=== PATIENT | male | born 1995 | race Hispanic/Latino ===

== ENCOUNTER 2018-07-15 23:53 | Emergency (ER) | payer SELFPAY ==
[2018-07-16] MEDS ORDERED: TETANUS & DIPHTHERIA TOX,ADULT 0.5 ML VIAL ONE (00:30)
--- NOTE | 2018-07-16 00:54 | EDPHYS ---
Physician Documentation [facility] Name: Subhash Fernandez Age: 23 yrs Sex: Male : 1995 Arrival Date: 07/16/2018 Time: 00:00 Bed 7 Private MD: ED Physician Xavi Tolbert HPI: 07/16 00:10 This 23 yrs old Male presents to ER via Ambulatory with complaints of Finger cp Injury. 00:10 The patient or guardian reports a laceration, dirty. cp 00:10 The complaints affect the distal phalanx right thumb. cp 00:10 Context: The problem was sustained at work, resulted from use of knife. Onset: The cp symptoms/episode began/occurred this morning. Associated signs and symptoms: Pertinent negatives: cyanosis distally, numbness distally. Historical: - Allergies: 00:13 No Known Allergies; aa1 - Home Meds: 00:13 None [Active]; aa1 - PMHx: 00:13 None; aa1 - PSHx: 00:13 None; aa1 - Immunization history:: Last tetanus immunization: unknown. - Social history:: Smoking status: Patient/guardian denies using tobacco. - Ebola Screening: : No symptoms or risks identified at this time. ROS: 00:15 Skin: Positive for laceration(s), of the distal phalanx right thumb. cp 00:15 Constitutional: Negative for fever, chills, and weight loss. cp 00:15 Neuro: Negative for numbness. 00:15 All other systems are negative. Exam: 00:45 Head/Face: Normocephalic, atraumatic. cp 00:45 Constitutional: The patient appears in no acute distress, alert, awake, well developed, well nourished. 00:45 Cardiovascular: Rate: normal. 00:45 Respiratory: the patient does not display signs of respiratory distress, Respirations: normal, no use of accessory muscles, no splinting, no tachypnea. 00:45 Musculoskeletal/extremity: Perfusion: the extremity is with brisk capillary refill, Sensation intact. Tendon exam: specific tendon testing normal through active and passive range of motion 00:45 Skin: injury, laceration(s), the wound is approximately 2 cm(s), of the dorsal aspect distal phalanx right thumb, that can be described as no foreign body, linear, without bleeding. Vital Signs: 00:13 BP 168 / 92; Pulse 99; Resp 16; Temp 98.0; Pulse Ox 100% on R/A; Weight 81.65 kg; aa1 Height 5 ft. 8 in. (172.72 cm); Pain 0/10; 01:03 BP 140 / 94; Pulse 84; Resp 16; Pulse Ox 97% on R/A; Pain 0/10; aa1 00:13 Body Mass Index 27.37 (81.65 kg, 172.72 cm) aa1 MDM: 00:07 Patient medically screened. cp 00:48 Differential diagnosis: open fracture, simple laceration, nail injury. Data reviewed: cp vital signs, nurses notes, radiologic studies, plain films. Test interpretation: by ED physician or midlevel provider: plain radiologic studies. Counseling: I had a detailed discussion with the patient and/or guardian regarding: the historical points, exam findings, and any diagnostic results supporting the discharge/admit diagnosis, radiology results, to return to the emergency department if symptoms worsen or persist or if there are any questions or concerns that arise at home. Response to treatment: the patient's symptoms have markedly improved after treatment, and as a result, I will discharge patient. 07/16 00:08 Order name: XRAY Hand RIGHT 3 View cp Administered Medications: 00:32 Drug: Tetanus-Diphtheria Toxoid Adult 0.5 ml {Zoo Veterinarian: [employer]. Exp: jb4 08/02/2020. Lot #: [id number]. } Route: IM; Site: right deltoid; Disposition: 01:51 Co-signature as Attending Physician, Xavi Tolbert MD. [email or web address] Disposition: 07/16/18 00:53 Discharged to Home. Impression: Laceration without foreign body of thumb without damage to nail. - Condition is Stable. - Discharge Instructions: Laceration Care, Adult. - Prescriptions for Keflex 500 mg Oral Capsule - take 1 capsule by ORAL route every 8 hours for 10 days; 30 capsule. - Medication Reconciliation Form, Thank You Letter, Antibiotic Education, Prescription Opioid Use form. - Follow up: Emergency Department; When: As needed; Reason: Worsening of condition. - Problem is new. - Symptoms have improved. Signatures: Dispatcher [employer] EDMS Maria Eugenia Black RN RN aa1 Xavi Tolbert MD MD pkDann Lieberman PA PA cp Bryson, James, RN RN jb4 Corrections: (The following items were deleted from the chart) 01:06 00:53 07/16/2018 00:53 Discharged to Home. Impression: Laceration without foreign body aa1 of thumb without damage to nail. Condition is Stable. Forms are Medication Reconciliation Form, Thank You Letter, Antibiotic Education, Prescription Opioid Use. Follow up: Emergency Department; When: As needed; Reason: Worsening of condition. Problem is new. Symptoms have improved. cp
--- NOTE | 2018-07-16 00:54 | ER ---
Nurse's Notes [facility] Name: Subhash Fernandez Age: 23 yrs Sex: Male : 1995 Arrival Date: 07/16/2018 Time: 00:00 Bed 7 Private MD: Diagnosis: Laceration without foreign body of thumb without damage to nail Presentation: 07/16 00:11 Presenting complaint: Patient states: he cut his R thumb this morning on a knife at aa1 work. Laceration noted with no active bleeding. CMS intact. Transition of care: patient was not received from another setting of care. Onset of symptoms was July 15, 2018. Risk Assessment: Do you want to hurt yourself or someone else? Patient reports no desire to harm self or others. Initial Sepsis Screen: Does the patient meet any 2 criteria? No. Patient's initial sepsis screen is negative. Does the patient have a suspected source of infection? Yes: Skin breakdown/wound. Care prior to arrival: None. 00:11 Method Of Arrival: Ambulatory aa1 00:11 Acuity: MEERA 4 aa1 Historical: - Allergies: 00:13 No Known Allergies; aa1 - Home Meds: 00:13 None [Active]; aa1 - PMHx: 00:13 None; aa1 - PSHx: 00:13 None; aa1 - Immunization history:: Last tetanus immunization: unknown. - Social history:: Smoking status: Patient/guardian denies using tobacco. - Ebola Screening: : No symptoms or risks identified at this time. Screenin:14 Abuse screen: Denies threats or abuse. Denies injuries from another. Nutritional aa1 screening: No deficits noted. Tuberculosis screening: No symptoms or risk factors identified. Fall Risk None identified. Assessment: 00:14 General: Appears in no apparent distress. comfortable, Behavior is calm, cooperative, aa1 appropriate for age. Pain: Denies pain. Neuro: Level of Consciousness is awake, alert, obeys commands, Oriented to person, place, time, situation. Respiratory: Airway is patent Respiratory effort is even, unlabored, Respiratory pattern is regular, symmetrical. GI: No signs and/or symptoms were reported involving the gastrointestinal system. : No signs and/or symptoms were reported regarding the genitourinary system. EENT: No signs and/or symptoms were reported regarding the EENT system. Derm: Skin is intact, is healthy with good turgor, Skin is pink, warm \T\ dry. Musculoskeletal: Circulation, motion, and sensation intact. Capillary refill < 3 seconds, Range of motion: intact in all extremities. Injury Description: Laceration sustained to palmar aspect of distal phalanx of right thumb is clean, 0.5 to 2.5 cm long, not bleeding, was sustained 12-24 hours ago. 01:04 Reassessment: Patient appears in no apparent distress at this time. Patient is aa1 alert/active/playful, equal unlabored respirations, skin warm/dry/pink. Discussed d/c \T\ f/u instructions with pt \T\ mother; denies questions or concerns at this time. Vital Signs: 00:13 BP 168 / 92; Pulse 99; Resp 16; Temp 98.0; Pulse Ox 100% on R/A; Weight 81.65 kg; aa1 Height 5 ft. 8 in. (172.72 cm); Pain 0/10; 01:03 BP 140 / 94; Pulse 84; Resp 16; Pulse Ox 97% on R/A; Pain 0/10; aa1 00:13 Body Mass Index 27.37 (81.65 kg, 172.72 cm) aa1 ED Course: 00:00 Patient arrived in ED. al2 00:05 Dann Andrews PA is PHCP. cp 00:05 Xavi Tolbert MD is Attending Physician. cp 00:13 Triage completed. aa1 00:13 Arm band placed on left wrist. Patient placed in an exam room, on a stretcher. aa1 00:14 Patient has correct armband on for positive identification. Bed in low position. Call aa1 light in reach. Pulse ox on. NIBP on. 00:15 Maria Eugenia Black RN is Primary Nurse. aa1 00:21 X-ray completed. Portable x-ray completed in exam room. Patient tolerated procedure kw well. 00:21 XRAY Hand RIGHT 3 View In Process Unspecified. EDMS 01:02 No provider procedures requiring assistance completed. Patient did not have IV access aa1 during this emergency room visit. Wound care: to laceration located on palmar aspect of distal phalanx of right thumb was cleaned with Hibiclens, irrigated with normal saline, dressed with Neosporin, 4X4s, tube gauze, Patient tolerated well. Administered Medications: 00:32 Drug: Tetanus-Diphtheria Toxoid Adult 0.5 ml {Garage Supervisor: [employer]. Exp: jb4 08/02/2020. Lot #: [id number]. } Route: IM; Site: right deltoid; Outcome: 00:53 Discharge ordered by . cp 01:04 Discharged to home ambulatory, with family. aa1 01:04 Condition: good 01:04 Discharge instructions given to patient, family, Instructed on discharge instructions, follow up and referral plans. medication usage, wound care, Demonstrated understanding of instructions, follow-up care, medications, wound care, Prescriptions given X 1. 01:06 Patient left the ED. aa1 Signatures: Dispatcher [employer] EDMS Maria Eugenia Black RN RN aa1 Jess Nova Corey, PA PA cp Bryson, James RN RN jb4 Jojo Rolon2
--- NOTE | 2018-07-16 08:39 | RAD REPORT ---
EXAM DESCRIPTION: RAD - Hand Right 3 View - 07/16/2018 12:25 am CLINICAL HISTORY: Laceration of the thumb, hand pain COMPARISON: None. FINDINGS: No fracture is identified. There is no dislocation or periosteal reaction noted. No forei gn body or other soft tissue abnormality. IMPRESSION: Negative right hand examination.
== END 2018-07-16 01:06 | disposition home or self-care (01) ==
LOC: ER 23:53
DX: S61.011A Laceration without foreign body of right thumb without damage to nail, initial encounter (principal); W26.0XXA Contact with knife, initial encounter; Y93.9 Activity, unspecified; Y92.89 Other specified places as the place of occurrence of the external cause; Y99.8 Other external cause status; Z23 Encounter for immunization
CPT/HCPCS: 90714; 99284

== ENCOUNTER 2021-01-23 00:36 | Emergency (ER) | payer SELFPAY ==
[2021-01-23] MEDS ORDERED: LIDOCAINE 1% MPF 30 ML VIAL ONE (01:13)
[2021-01-23] MEDS ORDERED: TETANUS & DIPHTHERIA TOX,ADULT 0.5 ML VIAL ONE (01:13)
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
[2021-01-23] MEDS ORDERED: CEFAZOLIN SODIUM 1 GM/VIAL ONE (06:42)
[2021-01-23 07:05] VITALS: TEMP 98.5; O2SAT 99
[2021-01-23 07:06] VITALS: BP 138/70
--- NOTE | 2021-01-23 12:44 | RAD REPORT ---
EXAM DESCRIPTION: Knee Right 3 View 01/23/2021 2:26 AM CDT CLINICAL HISTORY: 25 years, Male, Laceration COMPARISON: None FINDINGS: 3 X-ray views of the Right knee (frontal lateral and oblique views) were performed. There is no evidence for fracture or dislocation. There are no gross intraosseous lesions. No tanner ss articular abnormality is identified. There is no joint effusion. There is no periostitis. Ther e is a soft tissue gap along the insertion infrapatellar tendon within the tibial tubercle of approxi mately 2.1 cm. No definitive disruption of the tendon could be seen although there is small amount of air within the Hoffa's fat pad. IMPRESSION: No acute fracture or dislocation. Soft tissue gap along the insertion infrapatellar tendon within the tibial tubercle of approximately 2.1 cm. Tiny air bubble within the Hoffa's fat pad. Electronically signed by: Arie Murdock MD 01/23/2021 2:28 AM CDT Due to temporary technical issues with the PACS/Fluency reporting system, reports are being signed by the in house radiologist without review as a courtesy to ensure prompt reporting. The interpreting r adiologist is fully responsible for the content of the report.
== END 2021-01-23 06:58 | disposition home or self-care (01) ==
LOC: ER 00:36
PROC: 0JQN0ZZ Repair Right Lower Leg Subcutaneous Tissue and Fascia, Open Approach (ICD-10-PCS; principal; 2021-01-23)
DX: S81.811A Laceration without foreign body, right lower leg, initial encounter (principal); V18.0XXA Pedal cycle driver injured in noncollision transport accident in nontraffic accident, initial encounter
CPT/HCPCS: 90714; 96372; 99284; J0690

== ENCOUNTER 2021-02-04 08:02 | Emergency (ER) | payer SELFPAY ==
--- NOTE | 2021-02-04 08:30 | ER ---
Nurse's Notes [facility] Name: Subhash Fernandez Age: 25 yrs Sex: Male : 1995 Arrival Date: 02/04/2021 Time: 08:04 Bed 17 Private MD: Diagnosis: Encounter for removal of sutures Presentation: 02/04 08:18 Chief complaint: Patient states: needs sutures removed from the right knee placed here sv in the ER. Coronavirus screen: Client denies travel out of the [place] in the last 14 days. At this time, the client does not indicate any symptoms associated with coronavirus-19. Ebola Screen: No symptoms or risks identified at this time. Risk Assessment: Do you want to hurt yourself or someone else? Patient reports no desire to harm self or others. Onset of symptoms was January 23, 2021. 08:18 Method Of Arrival: Ambulatory sv 08:18 Acuity: MEERA 4 sv 08:20 Initial Sepsis Screen: Does the patient meet any 2 criteria? No. Patient's initial sv sepsis screen is negative. Does the patient have a suspected source of infection? No. Patient's initial sepsis screen is negative. Triage Assessment: 08:20 General: Appears in no apparent distress. comfortable, Behavior is calm, cooperative, sv appropriate for age. Pain: Denies pain. Neuro: Level of Consciousness is awake, alert, obeys commands, Gait is steady. Respiratory: Respiratory effort is even, unlabored. Historical: - Allergies: 08:19 No Known Allergies; sv - Immunization history:: Adult Immunizations up to date. - Social history:: Smoking status: unknown. Screenin:25 Abuse screen: Denies threats or abuse. Nutritional screening: No deficits noted. bw Tuberculosis screening: No symptoms or risk factors identified. Fall Risk None identified. Assessment: 08:25 Neuro: No deficits noted. Cardiovascular: No deficits noted. Respiratory: No deficits bw noted. GI: No signs and/or symptoms were reported involving the gastrointestinal system. Derm: Skin is intact, Skin is dry, Skin is normal, Skin temperature is warm Wound noted Wound is Bleeding controlled, would healing noted. 08:53 Reassessment: removed 12 sutures. Benzoin ointment and steristrips applied. Curlex bw dressing wrapped around wound. Edges approximated. No discharge, bleeding or signs of infection noted. Vital Signs: 08:20 BP 146 / 93; Pulse 89; Resp 16; Temp 97.9; Pulse Ox 100% ; sv ED Course: 08:04 Patient arrived in ED. rg4 08:15 Surya Henderson MD is Attending Physician. kdr 08:19 Triage completed. sv 08:19 Arm band placed on Patient placed in an exam room, on a stretcher. sv 08:24 Whit Rolle, RN is Primary Nurse. bw 08:25 Patient has correct armband on for positive identification. Call light in reach. Side bw rails up X 1. Pulse ox on. NIBP on. 08:25 Suture removal. bw 08:54 Patient did not have IV access during this emergency room visit. bw Administered Medications: No medications were administered Outcome: 08:29 Discharge ordered by . kdr 08:53 Discharged to home ambulatory. bw 08:53 Condition: stable 08:53 Discharge instructions given to patient. 08:54 Patient left the ED. Signatures: Brittany Rivera RN RN Surya Henderson MD MD kdr Garcia, Rubi 4 Whit Rolle RN RN Corrections: (The following items were deleted from the chart) 08:20 08:18 Onset of symptoms was January 2021 [facility]
--- NOTE | 2021-02-04 08:30 | EDPHYS ---
Physician Documentation [facility] Name: Subhash Fernandez Age: 25 yrs Sex: Male : 1995 Arrival Date: 02/04/2021 Time: 08:04 Bed 17 Private MD: ED Physician Surya Henderson HPI: 02/04 08:26 This 25 yrs old Male presents to ER via Ambulatory with complaints of Suture kdr Removal. 08:26 The patient has sutures on the right knee. Previous treatment: The patient was kdr initially treated 12 day(s) ago, the care was rendered at [facility]. Sutures/chris progress: The patient has no c/o's. The wound is well-healing with no redness, swelling, discharge, or dehiscence reported. The patient has not experienced similar symptoms in the past. The patient has been recently seen at the [facility] Emergency Department. Historical: - Allergies: 08:19 No Known Allergies; sv - Immunization history:: Adult Immunizations up to date. - Social history:: Smoking status: unknown. ROS: 08:26 Constitutional: Negative for fever, chills, and weight loss, Eyes: Negative for injury, kdr pain, redness, and discharge, Neck: Negative for injury, pain, and swelling. 08:26 Skin: Positive for laceration(s), of the right knee. Exam: 08:26 Constitutional: This is a well developed, well nourished patient who is awake, alert, kdr and in no acute distress. 08:26 Skin: Wound recheck: Suture laceration closure: the wound is healing well, the edges are well approximated, no drainage, no erythema, no swelling. Vital Signs: 08:20 BP 146 / 93; Pulse 89; Resp 16; Temp 97.9; Pulse Ox 100% ; sv MDM: 08:26 Data reviewed: vital signs, nurses notes. Counseling: I had a detailed discussion with kdr the patient and/or guardian regarding: the historical points, exam findings, and any diagnostic results supporting the discharge/admit diagnosis, the need for outpatient follow up. 08:29 Patient medically screened. kdr 02/04 08:25 Order name: [facility]. Order: Apply steri-strips to wound with benzoin after sutures kdr removed; Complete Time: 08:53 02/04 08:25 Order name: Suture Removal; Complete Time: 08:53 kdr Administered Medications: No medications were administered Disposition: 02/04/21 08:29 Discharged to Home. Impression: Encounter for removal of sutures. - Condition is Stable. - Discharge Instructions: Stitches, Chris, or Adhesive Wound Closure, Sterile Tape Wound Care, Suture Removal, Care After. - Medication Reconciliation Form, Thank You Letter form. - Follow up: Private Physician; When: 2 - 3 days; Reason: Wound Recheck, Recheck today's complaints, Continuance of care, Re-evaluation by your physician. - Problem is an ongoing problem. - Symptoms have improved. Signatures: Brittany Rivera RN RN sv Surya Henderson MD MD kdr Webb, Bethany, RN RN bethany Corrections: (The following items were deleted from the chart) 08:54 08:29 02/04/2021 08:29 Discharged to Home. Impression: Encounter for removal of bw sutures. Condition is Stable. Forms are Medication Reconciliation Form, Thank You Letter, Antibiotic Education, Prescription Opioid Use. Follow up: Private Physician; When: 2 - 3 days; Reason: Wound Recheck, Recheck today's complaints, Continuance of care, Re-evaluation by your physician. Problem is an ongoing problem. Symptoms have improved. kdr
== END 2021-02-04 08:54 | disposition home or self-care (01) ==
LOC: ER 08:02
DX: Z48.02 Encounter for removal of sutures (principal)
CPT/HCPCS: 99283